=== PATIENT | male | born 1990 | race Caucasian/White ===

== ENCOUNTER 2017-06-20 16:01 | Emergency (ER) | payer SELFPAY ==
--- NOTE | 2017-06-20 16:34 | EDPHY ---
H & P Stated Complaint: states rt cheek swollen since yesterday,pain,fever? Time Seen by Provider: 06/20/17 16:26 HPI/ROS: CHIEF COMPLAINT: Swollen cheek HISTORY OF PRESENT ILLNESS: The patient is a 27-year-old man who comes to the emergency department complaining swelling to his right cheek. He denies any trauma. He states that he did have some dental work done 2 months ago and a area and she warned him of possible infection. He has not had a fever. No vomiting. No vision changes REVIEW OF SYSTEMS: Constitutional: denies: chills, fever, recent illness, recent injury EENTM: See HPI, no nasal congestion. Respiratory: denies: cough, shortness of breath Cardiac: denies: chest pain, irregular heart rate, lightheadedness, palpitations Gastrointestinal/Abdominal: denies: abdominal pain, diarrhea, nausea, vomiting, blood streaked stools Genitourinary: denies: dysuria, frequency, hematuria, pain Musculoskeletal: denies: joint pain, muscle pain Skin: denies: lesions, rash, jaundice, bruising Neurological: denies: headache, numbness, paresthesia, tingling, dizziness, weakness Hematologic/Lymphatic: denies: blood clots, easy bleeding, easy bruising Immunologic/allergic: denies: HIV/AIDS, transplant EXAM: GENERAL: Well-appearing, well-nourished and in no acute distress. HEAD: Atraumatic, normocephalic. EYES: Pupils equal round and reactive to light, extraocular movements intact, sclera anicteric, conjunctiva are normal. ENT: See diagram, fluctuant abscess next to tooth 4. TMs normal, nares patent. NECK: Normal range of motion, supple without lymphadenopathy or JVD. LUNGS: Breath sounds clear to auscultation bilaterally and equal. No wheezes rales or rhonchi. HEART: Regular rate and rhythm without murmurs, rubs or gallops. ABDOMEN: Soft, nontender, normoactive bowel sounds. No guarding, no rebound. No masses appreciated. BACK: No CVA tenderness, no spinal tenderness, step-offs or deformities EXTREMITIES: Normal range of motion, no pitting or edema. No clubbing or cyanosis. NEUROLOGICAL: Cranial nerves II through XII grossly intact. Normal speech, normal gait. 5/5 strength, normal movement in all extremities, normal sensation PSYCH: Normal mood, normal affect. SKIN: Warm, dry, normal turgor, no visible rashes or lesions. Source: Patient Exam Limitations: No limitations - Personal History Current Tetanus Diphtheria and Acellular Pertussis (TDAP): No - Medical/Surgical History Hx Asthma: No Hx Chronic Respiratory Disease: No Hx Diabetes: No Hx Cardiac Disease: No Hx Renal Disease: No Hx Cirrhosis: No Hx Alcoholism: No Hx HIV/AIDS: No Hx Splenectomy or Spleen Trauma: No Other PMH: MEd hx-none. Surg-left shoulder-2009,wisdom teeth - Family History Significant Family History: No pertinent family hx - Social History Smoking Status: Heavy smoker Alcohol Use: Sober Drug Use: None Constitutional: Initial Vital Signs Temperature (C) 37.3 C 06/20/17 16:08 Heart Rate 102 H 06/20/17 16:08 Respiratory Rate 16 06/20/17 16:08 Blood Pressure 133/81 H 06/20/17 16:08 O2 Sat (%) 97 06/20/17 16:08 O2 Delivery Mode Room Air Allergies/Adverse Reactions: No Known Allergies Allergy (Verified 06/20/17 16:08) Home Medications: Medication Instructions Recorded Penicillin V Potassium [Pen Vk] 500 mg PO Q6H 10 Days tab 06/20/17 ED Images - Head Mouth: 1 - Fluctuant abscess Medical Decision Making Procedures: Procedure: Abscess drainage. The patient's abscess was located next to the 4th tooth. I obtained verbal consent from the patient to drain the abscess who was informed about the possibility of bleeding and pain. The abscess was incised with 11 blade scalpel and 2 cc of purulent drainage was expressed. I irrigated the wound. The patient tolerated the procedure well. The procedure was performed by myself. ED Course/Re-evaluation: Patient's abscess was drained. We discussed follow-up with dentist. He will likely need a root canal. I will start him on penicillin. Differential Diagnosis: Partial list of the Differential diagnosis considered include but were not limited to; dental abscess, dental kojo, soft tissue infection, and although unlikely based on the history and physical exam, I also considered parotid gland inflammation versus stone, tumor, trauma. I discussed these differential diagnoses and the plan with the patient as well as the usual and expected course. The patient understands that the diagnosis is provisional and that in medicine we are not always correct and that further workup is often warranted. Usual and customary warnings were given. All of the patient's questions were answered. The patient was instructed to return to the emergency department should the symptoms at all worsen or return, otherwise to followup with the physician as we discussed. - Data Points Medications Given: Discontinued Medications Hydrocodone Bitart/Acetaminophen ([place] 5/325mg Prepack#6) 1 btl TAKEHOME EDNOW ONE Stop: 06/20/17 17:25 Last Admin: 06/20/17 17:31 Dose: 1 btl Ketorolac Tromethamine (Toradol) 30 mg IM EDNOW ONE Stop: 06/20/17 17:07 Last Admin: 06/20/17 17:33 Dose: Not Given Departure - Departure Disposition: Home, Routine, Self-Care Clinical Impression: Dental abscess Condition: Fair Instructions: Penicillin V (By mouth), Hydrocodone/Acetaminophen (By mouth), Dental Abscess (ED) Referrals: NONE *PRIMARY CARE P,. [Primary Care Provider] - As per Instructions [facility] [Outside] - As per Instructions Dental [facility] [Outside] - As per Instructions Dental [facility] [Outside] - As per Instructions Stand Alone Forms: Work Excuse Prescriptions: Penicillin V Potassium [Pen Vk] 500 mg PO Q6H 10 Days tab
[2017-06-20] MEDS ORDERED: KETOROLAC 30 MG/1 ML SDV IM ONE (17:06)
[2017-06-20 17:24] VITALS: BP 131/88
[2017-06-20] MEDS ORDERED: HYDROCOD/APAP 5/325 PREPACK#6 BTL TAKEHOME ONE (17:24)
== END 2017-06-20 17:19 | disposition home or self-care (01) ==
LOC: CED 16:01
PROC: 0C953ZZ Drainage of Upper Gingiva, Percutaneous Approach (ICD-10-PCS; principal; 2017-06-20)
DX: K04.7 Periapical abscess without sinus (principal); F17.200 Nicotine dependence, unspecified, uncomplicated